=== PATIENT | male | born 1935 | race Hispanic/Latino ===

== ENCOUNTER 2019-11-24 09:20 | Observation (INO) | payer MEDICARE ==
[2019-11-24] MEDS ORDERED: methylPREDNISolone Sod Succinate 125 MG/2 ML INJ IV ONE (10:42)
[2019-11-24] MEDS ORDERED: IPRATROPIUM/ALBUTEROL SULFATE 3 ML AMPUL.NEB IH ONE (10:42)
[2019-11-24] MEDS ORDERED: MAGNESIUM SULFATE 2 GM/50 ML BAG IV ONE (10:43)
--- NOTE | 2019-11-24 10:45 | Emergency Department Report ---
ED Shortness of Breath HPI - General Chief Complaint: Weakness Stated Complaint: RADHA Time Seen by Provider: 11/24/19 10:35 Source: patient, EMS Mode of arrival: Stretcher Limitations: Language Barrier - History of Present Illness Initial Comments: Patient is an 84-year-old male that presents emergency room with complaints of shortness of breath. 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 Patient states he is having mild chest pain patient states his shortness of breath started today. MD Complaint: shortness of breath, cough -: Sudden Severity: severe Consistency: constant Improves With: rest Worsens With: exertion Known History Of: COPD Associated Symptoms: chest pain - Related Data Home Oxygen Therapy: No Home Medications Medication Instructions Recorded Confirmed Last Taken Apixaban [Eliquis] 5 mg PO BID 11/24/19 11/24/19 Unknown AtorvaSTATin [Lipitor] 10 mg PO QHS 11/24/19 11/24/19 Unknown Levothyroxine [Synthroid] 125 mcg PO QAM 11/24/19 11/24/19 Unknown Lisinopril/Hydrochlorothiazide 1 each PO QDAY 11/24/19 11/24/19 Unknown [Zestoretic 10-12.5 mg Tablet] Loperamide [Imodium] 2 mg PO ONCE 11/24/19 11/24/19 Unknown Metoprolol Xl [Metoprolol 25 mg PO QDAY 11/24/19 11/24/19 Unknown SUCCINATE ER TAB] PARoxetine [Paxil] 20 mg PO DAILY 11/24/19 11/24/19 Unknown Pantoprazole [Protonix] 40 mg PO QDAY 11/24/19 11/24/19 Unknown Tamsulosin [Flomax] 0.4 mg PO QDAY 11/24/19 11/24/19 Unknown hydrALAZINE [Apresoline TAB] 10 mg PO BID 11/24/19 11/24/19 Unknown Allergies Allergy/AdvReac Type Severity Reaction Status Date / Time No Known Allergies Allergy Verified 01/25/14 10:06 ED Review of Systems ROS: Stated complaint: RADHA Other details as noted in HPI Constitutional: denies: chills, fever Eyes: denies: eye pain, eye discharge, vision change ENT: denies: ear pain, throat pain Respiratory: cough, shortness of breath. denies: wheezing Cardiovascular: chest pain. denies: palpitations Endocrine: no symptoms reported Gastrointestinal: denies: abdominal pain, nausea, diarrhea Genitourinary: denies: urgency, dysuria Musculoskeletal: denies: back pain, joint swelling, arthralgia Skin: denies: rash, lesions Neurological: denies: headache, weakness, paresthesias Psychiatric: denies: anxiety, depression Hematological/Lymphatic: denies: easy bleeding, easy bruising ED Past Medical Hx - Past Medical History Previous Medical History?: Yes Hx Hypertension: Yes (30yrs) Hx Congestive Heart Failure: No Hx Diabetes: No Hx GERD: Yes Hx of Cancer: Yes (Laryngeal) Hx Arthritis: Yes Hx Asthma: No Hx COPD: No Hx HIV: No Additional medical history: g-tube. A. fib - Surgical History Past Surgical History?: Yes Additional Surgical History: Tracheostomy - Family History Family history: no significant - Social History Smoking Status: Former Smoker Substance Use Type: None - Medications Home Medications: Home Medications Medication Instructions Recorded Confirmed Last Taken Type Apixaban [Eliquis] 5 mg PO BID 11/24/19 11/24/19 Unknown History AtorvaSTATin [Lipitor] 10 mg PO QHS 11/24/19 11/24/19 Unknown History Levothyroxine [Synthroid] 125 mcg PO QAM 11/24/19 11/24/19 Unknown History Lisinopril/Hydrochlorothiazide 1 each PO QDAY 11/24/19 11/24/19 Unknown History [Zestoretic 10-12.5 mg Tablet] Loperamide [Imodium] 2 mg PO ONCE 11/24/19 11/24/19 Unknown History Metoprolol Xl [Metoprolol 25 mg PO QDAY 11/24/19 11/24/19 Unknown History SUCCINATE ER TAB] PARoxetine [Paxil] 20 mg PO DAILY 11/24/19 11/24/19 Unknown History Pantoprazole [Protonix] 40 mg PO QDAY 11/24/19 11/24/19 Unknown History Tamsulosin [Flomax] 0.4 mg PO QDAY 11/24/19 11/24/19 Unknown History hydrALAZINE [Apresoline TAB] 10 mg PO BID 11/24/19 11/24/19 Unknown History ED Physical Exam - General Limitations: No Limitations General appearance: alert, in distress - Head Head exam: Present: atraumatic, normocephalic - Eye Eye exam: Present: normal appearance - ENT ENT exam: Present: mucous membranes moist - Neck Neck exam: Present: normal inspection - Respiratory Respiratory exam: Present: respiratory distress, wheezes, rhonchi (On right lung), decreased breath sounds - Cardiovascular Cardiovascular Exam: Present: regular rate, normal rhythm. Absent: systolic murmur, diastolic murmur, rubs, gallop - GI/Abdominal GI/Abdominal exam: Present: soft, normal bowel sounds - Rectal Rectal exam: Present: deferred - Extremities Exam Extremities exam: Present: normal inspection - Back Exam Back exam: Present: normal inspection - Neurological Exam Neurological exam: Present: alert, oriented X3 - Psychiatric Psychiatric exam: Present: normal affect, normal mood - Skin Skin exam: Present: warm, dry, intact, normal color. Absent: rash ED Course Vital Signs 11/24/19 11/24/19 11/24/19 10:34 10:44 10:46 Temperature 98.7 F Pulse Rate 54 L 56 L Respiratory 16 16 Rate Blood Pressure Blood Pressure 130/61 [Left] O2 Sat by Pulse 99 100 100 Oximetry 11/24/19 14:00 Temperature Pulse Rate 54 L Respiratory 14 Rate Blood Pressure 157/68 Blood Pressure [Left] O2 Sat by Pulse 97 Oximetry - Reevaluation(s) Reevaluation #1: Patient's work to breathe has decreased. Patient's wheezing has improved. 11/24/19 12:01 Reevaluation #2: I discussed all results with patient. I discussed plan of care with patient. Patient agrees with plan of care and admission. Patient to be admitted to the hospitalist service. 11/24/19 12:31 - Consultations Consultation #1: Hospitalist consulted for admission. Hospitalist to admit patient. Bridge orders placed 11/24/19 12:28 ED Medical Decision Making - Lab Data Result diagrams: 11/24/19 10:51 11/24/19 10:51 - EKG Data EKG shows normal: axis, intervals, QRS complexes, ST-T waves Rate: bradycardia - EKG Data Interpretation: other (Irregular rhythm, A. fib) - Radiology Data Radiology results: report reviewed, image reviewed interpreted by me: right lobe pneumonia. - Medical Decision Making Patient is a 4-year-old male that presents emergency room with complaints of shortness of breath, chest pain. On initial evaluation pain defined to have generalized wheezing and right-sided rhonchi on his lung exam. Patient was given magnesium, breathing treatment, Solu-Medrol and antibiotics. Patient's chest x-ray shows a possible early right-sided pneumonia. Patient's labs are unremarkable. 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 Communication had to be done by writing and letting the patient read it and respond. Patient admitted to the hospitalist service for further evaluation and treatment and observation. - Differential Diagnosis Pneumonia, chest pain, shortness of breath, ACS, wheezing Critical Care Time: Yes Critical care time in (mins) excluding proc time.: 35 Critical care attestation.: If time is entered above; I have spent that time in minutes in the direct care of this critically ill patient, excluding procedure time. Critical Care Time: 35 minutes ED Disposition Clinical Impression: SOB (shortness of breath), Wheezing, Difficulty breathing Chest pain Qualifiers: Chest pain type: unspecified Qualified Code(s): R07.9 - Chest pain, unspecified Pneumonia Qualifiers: Pneumonia type: due to unspecified organism Laterality: right Lung location: lower lobe of lung Qualified Code(s): J18.9 - Pneumonia, unspecified organism Disposition: OP ADMIT IP TO THIS HOSP Is pt being admited?: Yes Does the pt Need Aspirin: No Condition: Critical Time of Disposition: 12:17 HEART Score - HEART Score History: Moderately suspicious EKG: Non-specific Age: > 65 Risk factors: No known risk factors Troponin: Troponin T < 0.010 ng/mL (0.00-0.029) 11/24/19 10:51 Troponin: < normal limit HEART Score: 4 BRE score - Bre Score Age > 65: (1) Yes Aspirin use within the Past 7 Days: (1) Yes 3 or more CAD Risk Factors: (0) No 2 or more Angina events in past 24 hrs: (0) No Known CAD with more than 50% Stenosis: (0) No Elevated Cardiac Markers: (0) No ST Deviation Greater than 0.5mm: (0) No BRE Score: 2
[2019-11-24 11:14] LABS: Basophils % (Auto) 0.5 % (0.0-1.8); Eosinophils # (Auto) 0.1 K/mm3 (0.0-0.4); Eosinophils % (Auto) 0.7 % (0.0-4.3); Hematocrit 39.3 % (35.5-45.6); Hemoglobin 13.7 gm/dl (11.8-15.2); Lymphocytes # (Auto) 1.8 K/mm3 (1.2-5.4); Lymphocytes % (Auto) 21.2 % (13.4-35.0); Mean Corpuscular HGB Conc 35 % (32-34); Mean Corpuscular Volume 90 fl (84-94); Monocytes # (Auto) 0.8 K/mm3 (0.0-0.8); Monocytes % (Auto) 8.8 % (0.0-7.3); Platelet Count 216 K/mm3 (140-440); Red Blood Count 4.38 M/mm3 (3.65-5.03); Red Cell Distribution Width 13.7 % (13.2-15.2)
--- NOTE | 2019-11-24 11:33 | XRay Report ---
CHEST 1 VIEW 11/24/2019 10:25 AM INDICATION / CLINICAL INFORMATION: Dyspnea. COMPARISON: None available. FINDINGS: SUPPORT DEVICES: None. HEART / MEDIASTINUM: No significant abnormality. LUNGS / PLEURA: No significant pulmonary or pleural abnormality. No pneumothorax. ADDITIONAL FINDINGS: No significant additional findings. IMPRESSION: 1. No acute findings. Signer Name: Ron Jimenez MD Signed: 11/24/2019 11:28 AM Workstation Name: [id number]
[2019-11-24 11:46] LABS: Creatine Kinase MB 3.6 ng/mL (0.0-4.0)
[2019-11-24 11:49] LABS: Alanine Aminotransferase 17 units/L (7-56); Albumin 4.1 g/dL (3.9-5); BUN/Creatinine Ratio 9; Blood Urea Nitrogen 13 mg/dL (9-20); Hemolysis Index 11
[2019-11-24] MEDS ORDERED: CEFEPIME/NS 2 GM/100 ML 2 GM/100 ML BAG IV ONE ×2 (12:19→14:09)
--- NOTE | 2019-11-24 14:04 | History and Physical Report ---
History of Present Illness Date of admission: 11/24/19 12:32 Chief complaint: Its hard to catch my breath History of present illness: 84 YO Male with HTN, HLD, DM, Atrial Fib on Therqpeutic Anticoagulation with Eliquis, BPH, OA, Cerebral Atherosclerosis, Laryngeal Cancer S/P Trach Placement presents to ED for evaluation. Patient states that he had experienced shortness of breath as well as chest discomfort today after walking to a nearby convenience store from his home. EMS was notified and upon arrival the patient was found to be in distress. Patient transported to [facility] for further care and evaluation of the aforementioned symptoms. Patient seen and evaluated in the emergency department. Lab and imaging studies reviewed. Chest x-ray revealed evidence of early pneumonia. Patient initiated on pneumonia protocol due to increased risk of pulmonary decompensation. No reports of fever, chills, palpitations, productive cough, skin rash, recent ill contacts, known exposure to COVID-19. Advanced care planning conducted in ED. Past History Past Medical History: diabetes, GERD, hypertension, hyperlipidemia Past Surgical History: Other (Tracheostomy and PEG tube placement) Social history: single. denies: smoking, alcohol abuse, prescription drug abuse Family history: hypertension Medications and Allergies Allergies Allergy/AdvReac Type Severity Reaction Status Date / Time No Known Allergies Allergy Verified 01/25/14 10:06 Home Medications Medication Instructions Recorded Confirmed Last Taken Type Apixaban [Eliquis] 5 mg PO BID 11/24/19 11/24/19 Unknown History AtorvaSTATin [Lipitor] 10 mg PO QHS 11/24/19 11/24/19 Unknown History Levothyroxine [Synthroid] 125 mcg PO QAM 11/24/19 11/24/19 Unknown History Lisinopril/Hydrochlorothiazide 1 each PO QDAY 11/24/19 11/24/19 Unknown History [Zestoretic 10-12.5 mg Tablet] Loperamide [Imodium] 2 mg PO ONCE 11/24/19 11/24/19 Unknown History Metoprolol Xl [Metoprolol 25 mg PO QDAY 11/24/19 11/24/19 Unknown History SUCCINATE ER TAB] PARoxetine [Paxil] 20 mg PO DAILY 11/24/19 11/24/19 Unknown History Pantoprazole [Protonix] 40 mg PO QDAY 11/24/19 11/24/19 Unknown History Tamsulosin [Flomax] 0.4 mg PO QDAY 11/24/19 11/24/19 Unknown History hydrALAZINE [Apresoline TAB] 10 mg PO BID 11/24/19 11/24/19 Unknown History Review of Systems Constitutional: no weight loss, no weight gain, no fever, no chills, no fatigue, no weakness, no malaise, no lethargy Ears, nose, mouth and throat: no ear pain, no ear discharge, no tinnitis, no decreased hearing, no nose pain, no nasal congestion Cardiovascular: shortness of breath, no chest pain, no orthopnea, no palpitations Respiratory: no cough, no cough with sputum, no excessive sputum, no hemoptysis Gastrointestinal: no nausea, no vomiting, no diarrhea, no constipation Genitourinary Male: no hematuria, no flank pain, no discharge, no urinary frequency Rectal: no pain, no incontinence, no bleeding Musculoskeletal: no neck stiffness, no neck pain Integumentary: no rash, no pruritis, no redness, no sores, no wounds Neurological: no head injury, no transient paralysis, no paralysis, no weakness, no parathesias, no numbness Psychiatric: no anxiety, no memory loss, no change in sleep habits, no sleep disturbances, no hypersomnia, no change in appetite, no suicidal ideation Endocrine: no cold intolerance, no heat intolerance, no polyphagia, no excessive thirst, no polydipsia, no polyuria Hematologic/Lymphatic: no easy bruising, no easy bleeding, no lymphadenopathy Allergic/Immunologic: no urticaria, no allergic rhinitis, no anaphylaxis Exam - Constitutional Vitals: Temp Pulse Resp BP Pulse Ox 98.7 F 54 L 16 130/61 100 11/24/19 10:44 11/24/19 10:44 11/24/19 10:44 11/24/19 10:44 11/24/19 10:46 General appearance: Present: mild distress - EENT Eyes: Present: PERRL ENT: hearing intact, clear oral mucosa - Neck Neck: Present: supple, normal ROM, other (Tracheostomy in place) - Respiratory Respiratory effort: normal Respiratory: bilateral: diminished - Cardiovascular Heart Sounds: Present: S1 & S2. Absent: rub, click - Extremities Extremities: pulses symmetrical, No edema Peripheral Pulses: within normal limits - Abdominal General gastrointestinal: Present: soft, non-tender, non-distended, normal bowel sounds Male genitourinary: Present: normal - Integumentary Integumentary: Present: clear, warm, dry - Musculoskeletal Musculoskeletal: gait normal, strength equal bilaterally - Psychiatric Psychiatric: appropriate mood/affect, intact judgment & insight - Neurologic Neurologic: CNII-XII intact, moves all extremities HEART Score - HEART Score EKG: Non-specific Age: > 65 Risk factors: No known risk factors Troponin: Troponin T < 0.010 ng/mL (0.00-0.029) 11/24/19 10:51 Troponin: < normal limit Results - Labs CBC & Chem 7: 11/24/19 10:51 11/24/19 10:51 Labs: Abnormal lab results 11/24/19 11/24/19 Range/Units 10:51 10:51 MCHC 35 H (32-34) % [place] % (Auto) 8.8 H (0.0-7.3) % Potassium 3.3 L (3.6-5.0) mmol/L Glucose 109 H (75-100) mg/dL Total Creatine Kinase 190 H (55-170) units/L Assessment and Plan - Patient Problems (1) Pneumonia Current Visit: Yes Status: Acute Plan to address problem: Pneumonia protocol: IV antibiotic therapy, nebulizer therapy, pulse oximetry, chest x-ray, blood culture, (2) Hypokalemia Current Visit: Yes Status: Acute Plan to address problem: Dietary repletion, repeat BMP in a.m. (3) Laryngeal carcinoma Current Visit: No Status: Acute Plan to address problem: Tracheostomy in place, supportive care, outpatient oncology follow-up. (4) Diabetes Current Visit: Yes Status: Acute Plan to address problem: Consistent carbohydrate diet, sliding scale insulin, Accu-Chek, hypoglycemia protocol (5) Hypertension Current Visit: Yes Status: Acute Qualifiers: Hypertension type: essential hypertension Qualified Code(s): I10 - Essential (primary) hypertension Plan to address problem: Monitor blood pressure every shift, continue medical management. (6) Atrial fibrillation Current Visit: Yes Status: Acute Qualifiers: Atrial fibrillation type: other persistent Qualified Code(s): I48.19 - Other persistent atrial fibrillation Plan to address problem: Continue therapeutic anticoagulation, continue with rate control. (7) DVT prophylaxis Current Visit: Yes Status: Acute Plan to address problem: SCD to bilateral lower extremities while in bed, continue therapeutic anticoa gulation (8) Advance care planning Current Visit: Yes Status: Acute Plan to address problem: Disease education conducted, patient prognosis Discussed, patient is full code, patient acknowledges understanding agreement with care plan, +30 minutes.
[2019-11-24] MEDS ORDERED: ACETAMINOPHEN 325 MG TAB PO PRN (14:05)
[2019-11-24] MEDS ORDERED: ONDANSETRON 4 MG/2 ML INJ IV PRN (14:05)
--- NOTE | 2019-11-24 14:06 | History and Physical Report ---
History of Present Illness Date of examination: 11/24/19 Date of admission: 11/24/19 12:32 History of present illness: Mr. Alas is an 84 year old with Laryngeal CA s/p tracheostomy, Afib on anti coagulation, COPD, atherosclerosis, HTN, GERD, arthritis, depression, BPH, [place] and hypothyroidism presents to [facility] with complains of SOB and mild chest pain starting today. His chest pain started today, is right sided and increases with inhalation. He denies any sick contacts, fever, productive cough, fatigue, nausea or vomiting. He denies recent exposure to any contacts with COVID 19. In the ED he received Cefepime, douneb, Magnesium Sulfate, solumedrol and CXR shows possible right lower lobe PNA. Prior admission and ED documentation reviewed. He will be admitted to the medical floor since he is at increased risk for decompensation Past History Past Medical History: atrial fib, CAD, cancer (Laryngeal), COPD, diabetes, GERD, hypertension, hypothyroidism, other (BPH, depression) Past Surgical History: Other (trach and peg) Social history: Lives alone, full code, other (former user of chewing tobacco) Family history: no significant family history Medications and Allergies Allergies Allergy/AdvReac Type Severity Reaction Status Date / Time No Known Allergies Allergy Verified 01/25/14 10:06 Home Medications Medication Instructions Recorded Confirmed Last Taken Type Apixaban [Eliquis] 5 mg PO BID 11/24/19 11/24/19 Unknown History AtorvaSTATin [Lipitor] 10 mg PO QHS 11/24/19 11/24/19 Unknown History Levothyroxine [Synthroid] 125 mcg PO QAM 11/24/19 11/24/19 Unknown History Lisinopril/Hydrochlorothiazide 1 each PO QDAY 11/24/19 11/24/19 Unknown History [Zestoretic 10-12.5 mg Tablet] Loperamide [Imodium] 2 mg PO ONCE 11/24/19 11/24/19 Unknown History Metoprolol Xl [Metoprolol 25 mg PO QDAY 11/24/19 11/24/19 Unknown History SUCCINATE ER TAB] PARoxetine [Paxil] 20 mg PO DAILY 11/24/19 11/24/19 Unknown History Pantoprazole [Protonix] 40 mg PO QDAY 11/24/19 11/24/19 Unknown History Tamsulosin [Flomax] 0.4 mg PO QDAY 11/24/19 11/24/19 Unknown History hydrALAZINE [Apresoline TAB] 10 mg PO BID 11/24/19 11/24/19 Unknown History Review of Systems Constitutional: no fever, no chills, no sweats, no weakness, no chronic headaches Ears, nose, mouth and throat: decreased hearing, no nasal congestion, no headache Cardiovascular: chest pain (right sided with inspiration ), rapid/irregular heart beat (afib), shortness of breath, dyspnea on exertion, high blood pressure, no orthopnea, no palpitations, no edema, no lightheadedness, no leg edema Respiratory: cough, shortness of breath, pain on inspiration (right sided chest pain), no cough with sputum, no congestion, no wheezing Gastrointestinal: no abdominal pain, no nausea, no vomiting, no diarrhea Genitourinary Male: no dysuria, no hematuria, no discharge Musculoskeletal: neck stiffness, low back pain, shooting leg pain, no neck pain, no arm numbness/tingling, no frequent falls Neurological: no head injury, no paralysis, no weakness, no seizures, no headaches Psychiatric: depression, no memory loss, no sleep disturbances Endocrine: no cold intolerance, no heat intolerance Hematologic/Lymphatic: easy bleeding (on anticouagulation) Allergic/Immunologic: no allergic rhinitis Exam - Constitutional Vitals: Temp Pulse Resp BP Pulse Ox 98.7 F 54 L 16 130/61 100 11/24/19 10:44 11/24/19 10:44 11/24/19 10:44 11/24/19 10:44 11/24/19 10:46 General appearance: Present: no acute distress, disheveled - EENT Eyes: Present: PERRL, EOM intact ENT: hearing decreased, poor dentition - Neck Neck: Present: supple, normal ROM - Respiratory Respiratory effort: normal Respiratory: bilateral: rhonchi - Cardiovascular Rhythm: regularly irregular Heart Sounds: Present: S1 & S2. Absent: systolic murmur, diastolic murmur, rub, click - Extremities Extremities: no ischemia, pulses intact, pulses symmetrical, No edema, normal temperature Peripheral Pulses: within normal limits - Abdominal General gastrointestinal: Present: soft, non-tender, non-distended, normal bowel sounds - Integumentary Integumentary: Present: warm, dry - Musculoskeletal Musculoskeletal: strength equal bilaterally - Psychiatric Psychiatric: appropriate mood/affect, cooperative - Neurologic Neurologic: CNII-XII intact, moves all extremities - Allied Health Allied health notes reviewed: nursing HEART Score - HEART Score History: Moderately suspicious EKG: Non-specific Age: > 65 Risk factors: 1-2 risk factors Troponin: Troponin T < 0.010 ng/mL (0.00-0.029) 11/24/19 10:51 Troponin: < normal limit HEART Score: 5 Results - Labs CBC & Chem 7: 11/24/19 10:51 11/24/19 10:51 Labs: Abnormal lab results 11/24/19 11/24/19 Range/Units 10:51 10:51 MCHC 35 H (32-34) % [place] % (Auto) 8.8 H (0.0-7.3) % Potassium 3.3 L (3.6-5.0) mmol/L Glucose 109 H (75-100) mg/dL Total Creatine Kinase 190 H (55-170) units/L - Imaging and Cardiology EKG: report reviewed Chest x-ray: report reviewed, image reviewed Assessment and Plan - Patient Problems (1) Pneumonia Current Visit: Yes Status: Acute Qualifiers: Pneumonia type: due to unspecified organism Laterality: right Lung location: lower lobe of lung Qualified Code(s): J18.9 - Pneumonia, unspecified organism Plan to address problem: -IV Rocephin and Azithromycin -obtain BC and sputum culture -Supplemental oxygen as needed -RT to eval and treat (2) Chest pain Current Visit: Yes Status: Acute Qualifiers: Chest pain type: unspecified Qualified Code(s): R07.9 - Chest pain, unspecified Plan to address problem: -possibly related to PNA -ED Troponin negative -Telemetry monitoring -PRN pain medication (3) Hypokalemia Current Visit: Yes Status: Acute Plan to address problem: -replete with KCL -f/u BMP in AM (4) Complication of tracheostomy Current Visit: No Status: Acute Plan to address problem: -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
[2019-11-24] MEDS ORDERED: LOPERAMIDE 2 MG CAP PO SCH (15:00)
[2019-11-24] MEDS ORDERED: PANTOPRAZOLE 20 MG TAB PO SCH (18:00)
[2019-11-24] MEDS: PANTOPRAZOLE 40 MG TAB PO SCH (18:17)
[2019-11-24] MEDS ORDERED: APIXABAN 5 MG TAB PO SCH (22:00)
[2019-11-24] MEDS: hydrALAZINE 10 MG TAB PO SCH (22:47)
[2019-11-24] MEDS: APIXABAN 2.5 MG TAB PO SCH (22:47)
[2019-11-25] MEDS ORDERED: LEVOTHYROXINE 125 MCG TAB PO SCH (06:00)
[2019-11-25 06:30] LABS: Hematocrit 38.3 % (35.5-45.6); Lymphocytes # (Auto) 1.5 K/mm3 (1.2-5.4); Mean Corpuscular HGB Conc 34 % (32-34); Mean Corpuscular Volume 90 fl (84-94); Monocytes # (Auto) 0.4 K/mm3 (0.0-0.8); Monocytes % (Auto) 4.1 % (0.0-7.3); Platelet Count 195 K/mm3 (140-440); Red Blood Count 4.26 M/mm3 (3.65-5.03); Red Cell Distribution Width 13.4 % (13.2-15.2)
[2019-11-25 06:45] LABS: Calcium 8.6 mg/dL (8.4-10.2)
[2019-11-25] MEDS: APIXABAN 2.5 MG TAB PO SCH (09:43)
[2019-11-25] MEDS: hydrALAZINE 10 MG TAB PO SCH (09:44)
[2019-11-25] MEDS: PANTOPRAZOLE 40 MG TAB PO SCH (09:44)
[2019-11-25] MEDS ORDERED: LISINOPRIL 10 MG TAB PO SCH (10:00)
[2019-11-25] MEDS ORDERED: hydroCHLOROthiazide 12.5 MG CAP PO SCH (10:00)
[2019-11-25] MEDS ORDERED: NON-FORMULARY EACH (Lisinopril/Hydrochlorothiazide [Zestoretic 10-12.5 Mg Tablet] 1 EACH) PO SCH (10:00)
[2019-11-25] MEDS ORDERED: METOPROLOL SUCCINATE XL 25 MG TAB PO SCH (10:00)
[2019-11-25] MEDS ORDERED: PARoxetine 20 MG TAB PO SCH (10:00)
[2019-11-25] MEDS ORDERED: TAMSULOSIN 0.4 MG CAP PO SCH (10:00)
[2019-11-25] MEDS ORDERED: cefTRIAXone/NS 2 GM/100 ML 2 GM/100 ML BAG IV SCH (10:00)
[2019-11-25] MEDS ORDERED: AZITHROMYCIN 500 MG in SODIUM CHLORIDE 0.9% 250ML 250 ML IV SCH (10:00)
[2019-11-25] MEDS ORDERED: POTASSIUM CHLORIDE ER 20 MEQ TAB PO ONE ×2 (11:00→15:00)
--- NOTE | 2019-11-25 11:29 | Discharge Summary ---
Providers - Providers Date of Admission: 11/24/19 14:05 Date of discharge: 11/25/19 Attending physician: NORM HENDERSON Primary care physician: [facility] Hospitalization Reason for admission: dyspnea Condition: Critical Hospital course: 84 YO Male with HTN, HLD, DM, Atrial Fib on Therqpeutic Anticoagulation with Eliquis, BPH, OA, Cerebral Atherosclerosis, Laryngeal Cancer S/P Trach Placement presents to ED for evaluation. Patient states that he had experienced shortness of breath as well as chest discomfort today after walking to a nearby convenience store from his home. EMS was notified and upon arrival the patient was found to be in distress. Patient transported to [facility] for further care and evaluation of the aforementioned symptoms. Patient seen and evaluated in the emergency department. Lab and imaging studies reviewed. Chest x-ray revealed evidence of early pneumonia. Patient initiated on pneumonia protocol due to increased risk of pulmonary decompensation. No reports of fever, chills, palpitations, productive cough, skin rash, recent ill contacts, known exposure to COVID-19. Patient was admitted with diagnosis of questionable early pneumonia. However, chest x-ray read by the radiologist showed no acute findings. Also, no clinical findings as well as normal WBC and patient was noted to be afebrile. Oxygen assessment was noted to be 95% on room air. Therefore, patient is felt to have received maximal hospital benefit and will be discharged home. Dedicated discharge time 32 minutes Disposition: [id number] TO HOME OR SELFCARE Time spent for discharge: 32 - Discharge Diagnoses (1) Atrial fibrillation Status: Acute Qualifiers: Atrial fibrillation type: other persistent Qualified Code(s): I48.19 - Other persistent atrial fibrillation (2) Diabetes Status: Acute (3) Hypertension Status: Acute Qualifiers: Hypertension type: essential hypertension Qualified Code(s): I10 - Essential (primary) hypertension (4) Hypokalemia Status: Acute (5) SOB (shortness of breath) Status: Acute (6) Laryngeal carcinoma Status: Acute Core Measure Documentation - Palliative Care Palliative Care/ Comfort Measures: Not Applicable - Core Measures Any of the following diagnoses?: none Exam - Constitutional Vitals: Temp Pulse Resp BP Pulse Ox 98.3 F 62 18 155/76 95 11/25/19 07:00 11/25/19 09:44 11/25/19 07:00 11/25/19 09:44 11/25/19 10:00 General appearance: Present: no acute distress, well-nourished - EENT Eyes: Present: PERRL ENT: hearing intact, clear oral mucosa - Neck Neck: Present: supple, normal ROM - Respiratory Respiratory effort: normal Respiratory: bilateral: CTA - Cardiovascular Heart Sounds: Present: S1 & S2. Absent: rub, click - Extremities Extremities: pulses symmetrical, No edema Peripheral Pulses: within normal limits - Abdominal General gastrointestinal: Present: soft, non-tender, non-distended, normal bowel sounds Male genitourinary: Present: normal - Integumentary Integumentary: Present: clear, warm, dry - Musculoskeletal Musculoskeletal: gait normal, strength equal bilaterally - Psychiatric Psychiatric: appropriate mood/affect, intact judgment & insight - Neurologic Neurologic: CNII-XII intact, moves all extremities Plan Activity: advance as tolerated Weight Bearing Status: Weight Bear as Tolerated Diet: regular Follow up with: SILVER DELGADO MD [Primary Care Provider] - 3-5 Days
--- NOTE | 2019-11-25 12:27 | Discharge Summary ---
Providers - Providers Date of Admission: 11/24/19 12:32 Attending physician: NORM HENDERSON Primary care physician: SILVER FREGOSO MD Hospitalization Condition: Critical - Discharge Diagnoses (1) Pneumonia Status: Acute (2) Hypokalemia Status: Acute (3) Laryngeal carcinoma Status: Acute (4) Diabetes Status: Acute (5) Hypertension Status: Acute Qualifiers: Hypertension type: essential hypertension Qualified Code(s): I10 - Essential (primary) hypertension (6) Atrial fibrillation Status: Acute Qualifiers: Atrial fibrillation type: other persistent Qualified Code(s): I48.19 - Other persistent atrial fibrillation (7) DVT prophylaxis Status: Acute (8) Advance care planning Status: Acute Exam - Constitutional Vitals: Temp Pulse Resp BP Pulse Ox 98.3 F 62 18 155/76 95 11/25/19 07:00 11/25/19 09:44 11/25/19 07:00 11/25/19 09:44 11/25/19 10:00 Plan Follow up with: SILVER DELGADO MD [Primary Care Provider] - 3-5 Days
[2019-11-25 15:46] VITALS: BP 105/80
[2019-11-25] MEDS ORDERED: APIXABAN 5 MG TAB PO SCH (22:00)
[2019-11-26] MEDS ORDERED: AZITHROMYCIN 250 MG TAB PO SCH (10:00)
== END 2019-11-25 15:40 | disposition home or self-care (01) ==
LOC: ED 09:20 → INTOOBSV 12:32 → 4A 12:32 → OBSVTOIN 14:05 → INTOOBSV 14:05 → 4A 14:40
PROVIDERS: ADMIT Hospitalist; ATTEND Internal Medicine
DX: J18.9 Pneumonia, unspecified organism (principal); E87.6 Hypokalemia; C32.9 Malignant neoplasm of larynx, unspecified; E11.9 Type 2 diabetes mellitus without complications; I10 Essential (primary) hypertension; I48.19 Other persistent atrial fibrillation; E78.5 Hyperlipidemia, unspecified; N40.0 Benign prostatic hyperplasia without lower urinary tract symptoms; M19.90 Unspecified osteoarthritis, unspecified site; I67.2 Cerebral atherosclerosis; Z87.891 Personal history of nicotine dependence; Z93.0 Tracheostomy status; Z79.01 Long term (current) use of anticoagulants; Z79.899 Other long term (current) drug therapy
CPT/HCPCS: 36415; 71045; 80048; 80053; 82140; 82550; 82553; 84484; 85025; 85379; 87641; 93005; 96365; 96367; 96375; 99291; A9270; G0378; J0456; J0692; J0696; J2930; J3475; J7050